=== PATIENT | female | born 1990 | race Caucasian/White ===

== ENCOUNTER 2018-05-17 15:46 | Inpatient (IN) | payer BC ==
[2018-05-17] VITALS (11 sets, daily range): BP systolic 91–132; BP diastolic 30–94; PULSE 83–104; RESP 18–20; TEMP 97.9–98.4
[~2018-05-17 15:46] MED LIST: PERC5TAB12 PO
[2018-05-17] MEDS ORDERED: DIPHTH/TETANUS/ACEL PERTUSSIS (BOOSTER) 0.5 ML VIAL/PFS IM ONE (16:00)
[2018-05-17] MEDS ORDERED: LACTATED RINGER'S 1000 ML INJ 1,000 ML IV PRN (16:25)
[2018-05-17] MEDS ORDERED: LIDOCAINE HCL 1% 50 ML VIAL I-DERMAL PRN (16:30)
[2018-05-17] MEDS ORDERED: OXYTOCIN 30 UNITS-500ML PREMIX 500 ML IV ONE (16:30)
[2018-05-17] MEDS ORDERED: SODIUM CHLORID 0.9% 500 ML INJ 500 ML IV PRN (16:30)
[2018-05-17] MEDS ORDERED: MINERAL OIL 10 ML VIAL TOPICAL PRN (16:30)
[2018-05-17] MEDS ORDERED: ONDANSETRON HCL 4 MG/2 ML VIAL IV PUSH PRN (16:30)
[2018-05-17] MEDS ORDERED: LIDOCAINE HCL 1% 50 ML VIAL INFIL PRN (16:30)
[2018-05-17] MEDS ORDERED: CITRIC ACID-SODIUM CITRATE LIQ 30 ML UDC PO SCH (16:30)
--- NOTE | 2018-05-17 16:42 | HHI.HP ---
History & Physical H&P Chief Complaint pt presents c/o painful, regular contractions. Date Seen: May 17, 2018 Time Seen: 16:25 Travel History International Travel<30 Days: No Contact w/Intl Traveler<30Days: No Known Affected Area: No History of Present Illness HPI pt presents at term. c/o painful contractions. states she was seen by dr. griffiths at 11 am and cervix was closed. is uncomplicated. Weeks Gestation: 39 Para: 1 : 2 History (Limited) History Past Medical History Medical History: Denies Significant Hx Obstetric History Obstetric History 1 Past Surgical History Narrative Surgical wisdom teeth extraction appendectomy Family History Family History: Negative Social History Alcohol Use: No Tobacco Use: No Substance Abuse: No Allergies-Medications Allergies-Medications (Allergen,Severity, Reaction): Coded Allergies: No Known Allergies (Unverified , 06/27/14) Home Meds Reported Medications Oxycodone-Acetaminophen 5-325 mg (Percocet 5-325 mg) Oxycodone 5/325 Acetaminophen Tab, 1 TAB PO Q4-6H Y for PAIN, #20 TAB 06/29/14 ROS Review of Systems Except as stated in HPI: all other systems reviewed are Neg Physical Exam Physical Exam 135/62 108 18 98.1 Narrative GENERAL: Well-nourished, well-developed patient. SKIN: Warm and dry. HEAD: Normocephalic and atraumatic. EYES: No scleral icterus. No injection or drainage. ENT: No nasal drainage noted. Mucous membranes pink. Airway patent. NECK: Supple, trachea midline. No JVD. CARDIOVASCULAR: Regular rate and rhythm without murmurs, gallops, or rubs. RESPIRATORY: Breath sounds equal bilaterally. No accessory muscle use. BREASTS: Bilateral exam showed no masses , no retractions, no nipple discharge. ABDOMEN/GI: Abdomen soft, non-tender, bowel sounds present, no rebound, no guarding Gravid to 39 weeks size Fundal Height: [-] GENITOURINARY: External Genitalia: intact and normal in appearance BUS glands: [-] Cervix: [-] 5-6 Dilatation: [-] Effacement: [-] 80 Station: [-] -2 Presentation: [-] vtx Membranes: [intact ] Uterine Contractions: [-] q 2-3 FHT's: Category: [-] 1 Baseline: [-] 140s Reactive: [-] yes Variability: [-] Decels: [-] EXTREMITIES: No cyanosis or edema. BACK: Nontender without obvious deformity. No CVA tenderness. NEUROLOGICAL: Awake and alert. Motor and sensory grossly within normal limits. Five out of 5 muscle strength in all muscle groups. Normal speech. Data Data Data Orders Orders Ob (2e) Additional Admit Info (05/17/18 16:23) Admit To Inpatient (05/17/18 ) Code Status (05/17/18 16:25) Vital Signs (Adult) .Per protocol (05/17/18 16:) Activity Oob Ad Agatha (05/17/18 16:) Heart (05/17/18:) Amnioinfusion (05/17/18:) Urinary Catheter Management .ONCE (05/17/18:) Diet Liquid (05/17/18 Dinner) Lactated Ringer's 1000 Ml Inj (Lr 1000 M (05/17/18 16:25) Lactated Ringer's 1000 Ml Inj (Lr 1000 M (05/17/18 16:25) Sodium Chlorid 0.9% 500 Ml Inj (Ns 500 M (05/17/18 16:30) Sodium Chlor 0.9% 1000 Ml Inj (Ns 1000 M (05/17/18 16:45) Lidocaine 1% Inj (50 Ml) (Xylocaine 1% I (05/17/18 16:30) Citric Acid-Sodium Citrate Liq (Bicitra (05/17/18 16:30) Ondansetron Inj (Zofran Inj) (05/17/18 16:30) Fentanyl Inj (Fentanyl Inj) (05/17/18 16:30) Fentanyl Inj (Fentanyl Inj) (05/17/18 16:30) Complete Blood Count With Diff (05/17/18 16:25) Hold Clot (05/17/18:) Abo/Rh Blood Type (05/17/18 16:25) Urinalysis - C+S If Indicated (05/17/18 16:25) Drug Screen, Random Urine (05/17/18 16:) Ob/Psych Drug Screen, Urine (05/17/18:25) Resp Oxygen Non Rebreathe Mask (05/17/18 ) ^ Epidural / Intrathecal Infus (05/17/18 16:25) Oxytocin 30 Units-500ml Premix (Pitocin (05/17/18 16:30) Lidocaine 1% Inj (50 Ml) (Xylocaine 1% I (05/17/18 16:30) Light Mineral Oil (Muri-Lube Oil) (05/17/18 16:30) Inpatient Certification (05/17/18 ) MDM MDM Medical Record Reviewed: Yes Plan Labor admit gbs neg Physician Communication reviewed case with dr. griffiths, agrees with admission Diagnosis Diagnosis: Primary Impression: Active labor at term Condition: Stable Sabrina Parker MD May 17, 2018 16:42
[2018-05-17] MEDS ORDERED: SODIUM CHLOR 0.9% 1000 ML INJ 1,000 ML IV PRN (16:45)
[2018-05-17] MEDS ORDERED: LIDOCAINE HCL 1% PF 30 ML VIAL ONE (17:07)
--- NOTE | 2018-05-17 17:10 | MH ---
cc: Mike Link MD DATE OF ADMISSION: 05/17/2018 ADMITTING DIAGNOSIS: Term in active labor. HISTORY OF PRESENT ILLNESS: The patient is a 28-year-old white female, para 1-0-0-1, LMP 08/16/2017, EDC of 05/15/2018. Her course was benign. GBS was negative. The patient reports increasing contractions today, was seen in the office this morning with a closed cervix, advised to come in for increasing contractions and now is admitted at 5-6 cm. PAST MEDICAL HISTORY: Previous surgery in 2011, appendectomy. Age 23, third molars. Illness: Meningitis in 1995. MEDICATIONS: Vitamins. ALLERGIES: NONE. TRANSFUSIONS: None. SOCIAL HISTORY: She is , homemaker. Alcohol, tobacco and drugs are none. FAMILY HISTORY: Noncontributory. PHYSICAL EXAMINATION: GENERAL: She is a well-nourished, well-developed white female. VITAL SIGNS: Stable. HEENT: Normal. CHEST: Clear. HEART: Regular rate. BREASTS: Symmetrical. ABDOMEN: Gravid. EFW of 3500 grams. PELVIC: Cervix is now 7-8, complete. AROM with this meconium stained fluid, 0 station. LABS: GBS is negative. PLAN: Anticipate vaginal delivery. MD LJ Donovan/KD , 04:56 PM , 05:09 PM
[2018-05-17 17:22] LABS: AUTOMATED NEUTROPHIL # 12.2 TH/MM3 (1.8-7.7); BASOPHIL % 0.3 % (0.0-2.0); EOSINOPHIL % 0.2 % (0.0-4.0); HEMATOCRIT 37.6 % (35.0-46.0); HEMOGLOBIN 12.3 GM/DL (11.6-15.3); LYMPH % 10.2 % (9.0-44.0); LYMPHOCYTE # 1.5 TH/MM3 (1.0-4.8); MEAN CELL VOLUME 82.2 FL (80.0-100.0); MEAN CORPUSCULAR HEMOGLOBIN 26.9 PG (27.0-34.0); MEAN CORPUSCULAR HGB CONC 32.7 % (32.0-36.0); MEAN PLATELET VOLUME 8.4 FL (7.0-11.0); MONOCYTE # 0.7 TH/MM3 (0-0.9); NEUT % 84.3 % (16.0-70.0); PLATELET COUNT 336 TH/MM3 (150-450); RED BLOOD COUNT 4.57 MIL/MM3 (4.00-5.30); WHITE BLOOD COUNT 14.5 TH/MM3 (4.0-11.0)
[2018-05-17 17:29] LABS: BACTERIA, URINE OCC /hpf; BILIRUBIN, URINE NEG (NEG); BLOOD, URINE SMALL (NEG); GLUCOSE,URINE NEG (NEG); KETONE, URINE NEG (NEG); MUCUS URINE FEW /lpf (OCC); NITRITE,URINE NEG (NEG); SQUAMOUS EPITHELIAL CELL URINE 1 /hpf (0-5); URINE COLOR YELLOW (YELLW/STRAW); URINE LEUKOCYTE ESTERASE SMALL (NEG)
[2018-05-17] MEDS ORDERED: oxyCODONE/ACETAMINOPHEN 5 MG/325 MG TAB PO PRN ×2 (17:45)
[2018-05-17] MEDS ORDERED: WITCH HAZEL 50%/GLYCERIN 12.5% 40 PAD JAR TOPICAL PRN (17:45)
[2018-05-17] MEDS ORDERED: IBUPROFEN 800 MG TAB PO PRN (17:45)
[2018-05-17] MEDS ORDERED: ONDANSETRON ODT 4 MG TAB PO PRN (17:45)
[2018-05-17] MEDS ORDERED: DOCUSATE SODIUM 50 MG/SENNA 8.6 MG TAB PO PRN (17:45)
[2018-05-17] MEDS ORDERED: SODIUM CHLORIDE 0.9% FLUSH 10 ML FLUSH IV FLUSH PRN (17:45)
[2018-05-17] MEDS ORDERED: ALUMINUM/MAGNESIUM/SIMETH 30 ML CUP PO PRN (17:45)
[2018-05-17] MEDS ORDERED: ACETAMINOPHEN 325 MG TAB PO PRN (17:45)
[2018-05-17] MEDS ORDERED: BENZOCAINE 20% TOPICAL SPRAY 60 ML CAN TOPICAL PRN (17:45)
[2018-05-17] MEDS ORDERED: ZOLPIDEM TARTRATE 5 MG TAB PO PRN (17:45)
[2018-05-17] MEDS ORDERED: OXYTOCIN 30 UNITS-500ML PREMIX 500 ML IV SCH (17:45)
[2018-05-17] MEDS ORDERED: SODIUM CHLORIDE 0.9% FLUSH 10 ML FLUSH IV FLUSH SCH (21:00)
[2018-05-18 05:25] LABS: BASOPHIL # 0.1 TH/MM3 (0-0.2); BASOPHIL % 0.7 % (0.0-2.0); EOSINOPHIL # 0.1 TH/MM3 (0-0.4); EOSINOPHIL % 0.6 % (0.0-4.0); HEMATOCRIT 33.8 % (35.0-46.0); HEMOGLOBIN 11.1 GM/DL (11.6-15.3); LYMPH % 15.4 % (9.0-44.0); MEAN CELL VOLUME 83.2 FL (80.0-100.0); MEAN CORPUSCULAR HEMOGLOBIN 27.3 PG (27.0-34.0); MEAN CORPUSCULAR HGB CONC 32.8 % (32.0-36.0); MEAN PLATELET VOLUME 7.7 FL (7.0-11.0); MONO % 7.4 % (0.0-8.0); NEUT % 75.9 % (16.0-70.0); PLATELET COUNT 286 TH/MM3 (150-450); RED BLOOD COUNT 4.06 MIL/MM3 (4.00-5.30); WHITE BLOOD COUNT 13.2 TH/MM3 (4.0-11.0)
[2018-05-18] MEDS: LACTATED RINGER'S 1000 ML INJ 1,000 ML IV SCH ×2 (08:25→16:25)
--- NOTE | 2018-05-18 10:35 | HHI.DCPOC ---
Discharge Care Plan Report Symptoms to Your Doctor -Temperature above 100.5 degrees -Redness, of incision or excessive or foul smelling drainage -Unusual pain or calf pain -Increased vaginal bleeding -Painful or difficulty urinating -Feelings of extreme sadness or anxiety after 2 weeks Goals to Promote Your Health * To prevent worsening of your condition and complications * To maintain your health at the optimal level Directions to Meet Your Goals Take your medications as prescribed Follow your dietary instruction Follow activity as directed Ensure plenty of rest for recovery Drink fluids for hydration Keep your appointments as scheduled Take your immunizations and boosters as scheduled If your symptoms worsen call your PCP, if no PCP go to Urgent Care Center or Emergency Room Smoking is Dangerous to Your Health. Avoid second hand smoke Call the 24-hour crisis hotline for domestic abuse at Mike Link MD May 18, 2018 10:35
--- NOTE | 2018-05-18 10:58 | MD ---
cc: Mike Link MD DATE OF DISCHARGE: ADMITTING DIAGNOSIS: Term in active labor. DISCHARGE DIAGNOSIS: Term in active labor, delivered. HISTORY OF PRESENT ILLNESS AND HOSPITAL COURSE: This is a 28-year-old white female, para 1-0-0-1 with an LMP of 08/16/2017, EDC of 05/23/2018. Her course was benign. occurred with the Clomid induction of ovulation. labs included Rh positive and GBS negative. She was admitted in active labor on the evening of 05/17/2018 and rapidly progressed to a spontaneous vaginal delivery over intact perineum, a viable vigorous female. Apgars were 8 and 9. weight was 8 pound 10 ounce female. Baby was named Yarely and she was bottle feeding. did well. Requested discharge on the first day. Her pre and post postop labs were normal. She was advised NPV, light activity, return to see me in 6 weeks. She is bottle feeding. She will take her routine vitamins at home and Motrin OTC for pain relief. MD LJ Donovan/KD , 10:37 AM , 10:56 AM
== END 2018-05-18 18:15 | disposition home or self-care (01) | DRG 775 ==
LOC: HOBED 15:46 → H2EB 16:24 → H1EA 20:31
PROVIDERS: ADMIT Obstetrics & Gynecology; ATTEND Obstetrics & Gynecology
PROC: 10E0XZZ Delivery of Products of Conception, External Approach (ICD-10-PCS; principal; 2018-05-17)
PROC: 10907ZC Drainage of Amniotic Fluid, Therapeutic from Products of Conception, Via Natural or Artificial Opening (ICD-10-PCS; 2018-05-17)
DX: O77.0 Labor and delivery complicated by meconium in amniotic fluid (principal); Z37.0 Single live birth; Z3A.39 39 weeks gestation of pregnancy
CPT/HCPCS: 59025; 80307; 81001; 85025; 86900; 86901; 90715; J2590